=== PATIENT | male | born 1955 | race Caucasian/White ===

== ENCOUNTER 2019-10-14 00:50 | Day surgery (SDC) | payer MEDICARE, SELFPAY ==
[2019-10-10 13:55] VITALS: BMI 25.1
[2019-10-14] MEDS: LACTATED RINGERS 1,000 ML 150 ML IV CONT (08:04)
[2019-10-14 08:16] VITALS: BP 138/83; PULSE 64; RESP 18; TEMP 36.9; O2SAT 98
--- NOTE | 2019-10-14 08:54 | WPDANESEPPF ---
Anes - Initial Pre Proc Eval Procedure: Operation Date: 10/14/19 09:00 Proposed Procedures p Esophagogastroduodenoscopy - Augn Tse MD Date/Time: 10/14/19 08:54 Surgeon: Aung Tse MD Pre Op Diagnosis: Chaudhry's Esophagus Patient Data Age: 64 Gender: M Height: 6 ft 1 in Weight: 89.2 kg Last Vital Signs Temp 36.9 C 10/14/19 08:16 Pulse 64 10/14/19 08:16 Resp 18 10/14/19 08:16 BP 138/83 10/14/19 08:16 Pulse Ox 98 10/14/19 08:16 Allergies Allergy/AdvReac Type Severity Reaction Status Date / Time No Known Allergies Allergy Verified 10/10/19 13:50 Home Medications Medication Instructions Recorded Confirmed Type amlodipine-benazepril 1 cap PO DAILY 10/10/19 10/10/19 History atorvastatin 10 mg PO HS 10/10/19 10/10/19 History diazepam 5 mg PO BID PRN 10/10/19 10/10/19 History hydrocodone-acetaminophen 1 tablet PO Q6H PRN 10/10/19 10/10/19 History Patient hx anesthesia problems: none Family hx anesthesia problems: none [facility] Past Medical History Medical History (Updated 10/14/19 @ 08:54 by Syed Sanchez MD) Anxiety Barretts esophagus HTN (hypertension) Melanoma Social History Social History Gender identity (if verbalized by the patient): Male Anes - Eval Final PreProcedure Day of Procedure 10/14/19 08:54 Patient weight: overweight Heart: regular rate and rhythm Lungs: clear to auscultation Airway: Mallampati scale Neurological: alert and oriented Last oral intake: >/= 8 hours ASA classification: III Emergent: no Anesthetic plan: proceed Anesthesia type and monitoring: general GIVS and standard monitoring Informed Consent: The patient's anesthetic plan and its attendant risks and benefits were discussed with the patient/family/POA. Questions were solicited and answers provided to the satisfaction of the patient/family/POA.
--- NOTE | 2019-10-14 09:25 | P.CONGI_ITS ---
Assessment and Plan Additional Plan This is a 64-year-old white male patient seen in evaluation at the request of Dr. Attila Stauffer. Patient presents for surveillance exam. He has a known history of Chaudhry's esophagus. His current weight appetite bowel movements are normal. He denies any abdominal pain. He denies dysphagia. He denies bleeding. He has no heartburn at present. He feels much improved on starting pantoprazole 40 mg p.o. daily. Past medical history is significant for Chaudhry's esophagus. Elevated cholesterol. Current medications include amlodipine, benazepril, melatonin, atorvastatin, vitamins, melatonin, pantoprazole. No known drug allergies. Physical exam reveals patient to be alert. Oriented x3. HEENT exam unremarkable. Lungs are clear to auscultation and percussion. Heart is without murmur or extra sounds. Abdominal exam bowel sounds are present soft nontender with no hepatosplenomegaly. Impression 1. Chaudhry's esophagus. Plan is for surveillance EGD every 3 years. 2. GE reflux disease. Long-term use of anti-reflux measures and pantoprazole is advised. Plan is for surveillance EGD at this time. Long-term use of PPI advised. Anti- reflux measures and current G. GI Consult Note Consult date/time: 10/14/19 09:25 HPI: Lawrence Benoit is a 64 year old male [facility] Past Medical History Medical History (Updated 10/14/19 @ 08:54 by Syed Sanchez MD) Anxiety Barretts esophagus HTN (hypertension) Melanoma Social History Social History Gender identity (if verbalized by the patient): Male Meds Home Medications and Allergies Home Medications Medication Instructions Recorded Confirmed Type amlodipine-benazepril 1 cap PO DAILY 10/10/19 10/10/19 History atorvastatin 10 mg PO HS 10/10/19 10/10/19 History diazepam 5 mg PO BID PRN 10/10/19 10/10/19 History hydrocodone-acetaminophen 1 tablet PO Q6H PRN 10/10/19 10/10/19 History Allergies Allergy/AdvReac Type Severity Reaction Status Date / Time No Known Allergies Allergy Verified 10/10/19 13:50 Vital Signs Vital Signs - 24 hr 10/14/19 08:16 Temperature 36.9 C Pulse Rate 64 Respiratory Rate 18 Blood Pressure 138/83 Pulse Oximetry 98
[2019-10-14] MEDS: BENZOCAINE (*SP) 60 ML SPRAY CAN (HURRICAINE) 1 SPRAY MUCOUS MEM (09:38)
[2019-10-14 09:48] VITALS: BP 126/85; PULSE 69; RESP 20; O2SAT 98
[2019-10-14 09:58] VITALS: BP 128/81; PULSE 68; RESP 20; O2SAT 97
[2019-10-14 10:08] VITALS: BP 122/75; PULSE 62; RESP 20; O2SAT 99
== END 2019-10-14 10:19 | disposition home or self-care (01) ==
PROVIDERS: PCP Internal Medicine; Visit Provider Internal Medicine Gastroenterology
PROC: 0DJ08ZZ Inspection of Upper Intestinal Tract, Via Natural or Artificial Opening Endoscopic (ICD-10-PCS; CPT 43235; principal; 2019-10-14 09:00)
DX: K22.70 Barrett's esophagus without dysplasia (principal); K21.0 Gastro-esophageal reflux disease with esophagitis; E78.00 Pure hypercholesterolemia, unspecified; I10 Essential (primary) hypertension; F41.9 Anxiety disorder, unspecified; Z85.820 Personal history of malignant melanoma of skin
CPT/HCPCS: 43239; 88305; J2704; J7120

== ENCOUNTER 2022-11-21 01:40 | Day surgery (SDC) | payer MEDICARE, SELFPAY ==
[2022-11-07 15:51] VITALS: BMI 25.1
[2022-11-21 06:30] VITALS: BP 138/75; PULSE 64; RESP 18; TEMP 36.2; O2SAT 100; BMI 25.6
--- NOTE | 2022-11-21 06:38 | WPDANESEPPF ---
Anes - Initial Pre Proc Eval Procedure: Operation Date: 11/21/22 07:30 Proposed Procedures p Screening Colonoscopy - Aung Tse MD Date/Time: 11/21/22 06:38 Surgeon: Aung Tse MD Pre Op Diagnosis: neoplasm screening Patient Data Age: 67 Gender: M Height: 1.85 m Weight: 88 kg Last Vital Signs Temp 36.2 C L 11/21/22 06:30 Pulse 64 11/21/22 06:30 Resp 18 11/21/22 06:30 BP 138/75 11/21/22 06:30 Pulse Ox 100 11/21/22 06:30 O2 Del Method Room Air 11/21/22 06:30 Allergies Allergy/AdvReac Type Severity Reaction Status Date / Time citalopram [From Celexa] AdvReac Mild Nausea Verified 11/21/22 06:28 Home Medications Medication Instructions Recorded Confirmed Type diazepam 5 mg tablet (Valium) 5 mg PO QHS PRN sleep #30 tabs 08/14/22 11/21/22 Rx amlodipine 2.5 mg-benazepril 10 mg See Rx Instructions .Route 10/13/22 11/21/22 Rx capsule .COMPLEX #90 caps atorvastatin 10 mg tablet See Rx Instructions .Route 10/13/22 11/21/22 Rx .COMPLEX #90 tabs pantoprazole 40 mg tablet,delayed See Rx Instructions .Route 10/13/22 11/21/22 Rx release .COMPLEX #90 tabs hydrocodone 5 mg-acetaminophen 325 1 tablet PO Q6H PRN pain #90 tabs 10/17/22 11/21/22 Rx mg tablet aspirin 81 mg tablet 81 mg PO DAILY 11/07/22 11/21/22 History Patient hx anesthesia problems: none Family hx anesthesia problems: none Results Review: All pre-operative results and documents have been reviewed as part of the pre-operative evaluation. [facility] Past Medical History Medical History Anxiety Barretts esophagus Chronic pain Dyslipidemia HTN (hypertension) Melanoma Social History Social History (Updated 10/17/22 @ 09:38 by Randi Pascal) Smoking packs per day: 1 Smoking cigarettes per day: 20.0 Years smoked: 2 Smoking pack-years: 2.00 Smoking status: Former smoker Smokeless tobacco user: chewing tobacco Alcohol intake: current Alcohol use details: seldom Substance use: never Substance use type: does not use Lack of Transportation: No Lack of Food: Never True Current Housing: I Have Housing Concerned About Future Housing: No Difficulty Paying Gas/Electric Bills: No Difficulty Paying for Meds: No Currently Unemployed: No Education: High School Diploma/GED Difficulty w/ Childcare or Family Care: No Living arrangements: with family Occupation/Education: retired Gender identity (if verbalized by the patient): Male Sexual Orientation (if Verbalized by the Patient): Straight or Heterosexual Spiritual care concerns: No Anes - Eval Final PreProcedure Day of Procedure 11/21/22 06:38 Patient weight: normal Heart: regular rate and rhythm Lungs: decreased breath sounds Airway: Mallampati scale Neurological: alert and oriented Last oral intake: >/= 8 hours ASA classification: III Emergent: no Anesthetic plan: proceed Anesthesia type and monitoring: general GIVS and standard monitoring Results Review: All pre-operative results and documents have been reviewed as part of the pre-operative evaluation. Informed Consent: The patient's anesthetic plan and its attendant risks and benefits were discussed with the patient/family/POA. Questions were solicited and answers provided to the satisfaction of the patient/family/POA.
[2022-11-21] MEDS: LACTATED RINGERS 1,000 ML 150 ML IV CONT (06:42)
--- NOTE | 2022-11-21 07:56 | PM.HPGS ---
History of Present Illness History of Present Illness Consent: Risks, benefits, and alternatives have been discussed and questions answered. Patient agrees to proceed with procedure. Chief complaint: neoplasm screening Narrative: Lawrence Benoit is a 67 year old male Presents for screening colonoscopy. Patient's current weight appetite and bowel movements are normal. Patient denies abdominal pain. Patient has had no bleeding. Family history is noncontributory. Patient's past medical history is significant for Chaudhry's esophagus. Currently felt to be stable on pantoprazole 40mg p.o. daily. Review of Systems Review of Systems: Review of systems noncontributory. [facility] Past Medical History Medical History Anxiety Barretts esophagus Chronic pain Dyslipidemia HTN (hypertension) Melanoma Social History Social History (Updated 10/17/22 @ 09:38 by Randi Pascal) Smoking packs per day: 1 Smoking cigarettes per day: 20.0 Years smoked: 2 Smoking pack-years: 2.00 Smoking status: Former smoker Smokeless tobacco user: chewing tobacco Alcohol intake: current Alcohol use details: seldom Substance use: never Substance use type: does not use Lack of Transportation: No Lack of Food: Never True Current Housing: I Have Housing Concerned About Future Housing: No Difficulty Paying Gas/Electric Bills: No Difficulty Paying for Meds: No Currently Unemployed: No Education: High School Diploma/GED Difficulty w/ Childcare or Family Care: No Living arrangements: with family Occupation/Education: retired Gender identity (if verbalized by the patient): Male Sexual Orientation (if Verbalized by the Patient): Straight or Heterosexual Spiritual care concerns: No Meds Home Medications and Allergies Home Medications Medication Instructions Recorded Confirmed Type diazepam 5 mg tablet (Valium) 5 mg PO QHS PRN sleep #30 tabs 08/14/22 11/21/22 Rx amlodipine 2.5 mg-benazepril 10 mg See Rx Instructions .Route 10/13/22 11/21/22 Rx capsule .COMPLEX #90 caps atorvastatin 10 mg tablet See Rx Instructions .Route 10/13/22 11/21/22 Rx .COMPLEX #90 tabs pantoprazole 40 mg tablet,delayed See Rx Instructions .Route 10/13/22 11/21/22 Rx release .COMPLEX #90 tabs hydrocodone 5 mg-acetaminophen 325 1 tablet PO Q6H PRN pain #90 tabs 10/17/22 11/21/22 Rx mg tablet aspirin 81 mg tablet 81 mg PO DAILY 11/07/22 11/21/22 History Allergies Allergy/AdvReac Type Severity Reaction Status Date / Time citalopram [From Celexa] AdvReac Mild Nausea Verified 11/21/22 06:28 Vital Signs Vital Signs - 24 hr 11/21/22 06:30 Temperature 97.2 F L Pulse Rate 64 Respiratory Rate 18 Blood Pressure 138/75 Pulse Oximetry 100 Oxygen Delivery Room Air Exam Narrative: physical exam reveals patient to be alert. Vital signs stable. HEENT exam is unremarkable. Patient is anicteric. Lungs are clear to auscultation and percussion. Heart is without murmur or extra sounds. Abdomen bowel sounds present soft nontender with no organomegaly. Digital external rectal exam normal. Assessment and Plan Assessment and plan (1) Encounter for screening colonoscopy: Code(s): Z12.11 - Encounter for screening for malignant neoplasm of colon Status: Acute Assessment and Plan: S patient presents today for screening colonoscopy. Has been more than 10 years since last screening exam. follow-up to be determined after exam. (2) Barretts esophagus: Code(s): K22.70 - Chaudhry's esophagus without dysplasia Status: Acute Assessment and Plan: Patient with stable history of Chaudhry's esophagus. Last exam in 2019 was unremarkable stable with no dysplasia. Plan for surveillance EGD at 3 year intervals. Likely this should be arranged later this year.
[2022-11-21 08:00] VITALS: BP 109/72; PULSE 64; RESP 13; O2SAT 99
[2022-11-21 08:10] VITALS: BP 106/66; PULSE 57; RESP 16; O2SAT 98
[2022-11-21 08:20] VITALS: BP 107/76; PULSE 56; RESP 12; O2SAT 99
== END 2022-11-21 08:30 | disposition home or self-care (01) ==
PROVIDERS: PCP Physician Assistant Medical; Visit Provider Internal Medicine Gastroenterology
PROC: 0DJD8ZZ Inspection of Lower Intestinal Tract, Via Natural or Artificial Opening Endoscopic (ICD-10-PCS; CPT 45378; principal; 2022-11-21 07:30)
DX: Z12.11 Encounter for screening for malignant neoplasm of colon (principal); I10 Essential (primary) hypertension; E78.5 Hyperlipidemia, unspecified; K22.70 Barrett's esophagus without dysplasia; F41.9 Anxiety disorder, unspecified; G89.29 Other chronic pain; Z79.82 Long term (current) use of aspirin; Z79.891 Long term (current) use of opiate analgesic; Z87.891 Personal history of nicotine dependence
CPT/HCPCS: G0121; J2704; J7120

== ENCOUNTER 2023-10-29 07:00 | Outpatient (NON) | payer MEDICARE, OTHER, SELFPAY | END 2023-10-29 07:01 | disposition home or self-care (01) | PROVIDERS: PCP Physician Assistant Medical; Visit Provider Internal Medicine Gastroenterology | DX: K22.70 Barrett's esophagus without dysplasia (principal) | CPT/HCPCS: 88305 ==

== ENCOUNTER 2023-10-29 07:53 | Day surgery (SDC) | payer MEDICARE, OTHER, SELFPAY ==
[2023-10-27 10:54] VITALS: BMI 25.9
[2023-10-27 12:18] VITALS: BMI 25.2
[2023-10-29 09:07] VITALS: BP 129/87; PULSE 66; RESP 18; TEMP 36.8; O2SAT 100; BMI 25.9
[2023-10-29] MEDS: LACTATED RINGERS 1,000 ML 150 ML IV CONT (09:28)
--- NOTE | 2023-10-29 09:36 | WPDANESEPPF ---
Anes - Initial Pre Proc Eval Procedure: Operation Date: 10/29/23 10:30 Proposed Procedures p Esophagogastroduodenoscopy - Aung Tse MD Date/Time: 10/29/23 09:36 Surgeon: Aung Tse MD Pre Op Diagnosis: Barretts Esophagus without Dysplasia Patient Data Age: 68 Gender: M Height: 1.85 m Weight: 89 kg Last Vital Signs Temp 36.8 C 10/29/23 09:07 Pulse 66 10/29/23 09:07 Resp 18 10/29/23 09:07 BP 129/87 10/29/23 09:07 Pulse Ox 100 10/29/23 09:07 O2 Del Method Room Air 10/29/23 09:07 Allergies Allergy/AdvReac Type Severity Reaction Status Date / Time No Known Allergies Allergy Verified 10/29/23 09:00 Home Medications Medication Instructions Recorded Confirmed Type aspirin 81 mg tablet 81 mg PO DAILY 11/07/22 10/29/23 History diazepam 5 mg tablet (Valium) 5 mg PO QHS PRN sleep #30 tabs 04/28/23 10/29/23 Rx finasteride 5 mg tablet 5 mg PO DAILY 06/29/23 10/29/23 History tamsulosin 0.4 mg capsule 0.4 mg PO DAILY 06/29/23 09/16/23 History amlodipine 5 mg-benazepril 10 mg 1 cap PO DAILY #90 caps 08/19/23 10/29/23 Rx capsule celecoxib 200 mg capsule (Celebrex) 200 mg PO DAILY #90 caps 08/19/23 10/29/23 Rx atorvastatin 10 mg tablet See Rx Instructions .Route 10/08/23 10/29/23 Rx .COMPLEX #90 tabs pantoprazole 40 mg tablet,delayed See Rx Instructions .Route 10/08/23 10/29/23 Rx release .COMPLEX #90 tabs hydrocodone 5 mg-acetaminophen 325 1 tablet PO Q8H PRN pain #70 tabs 10/09/23 10/29/23 Rx mg tablet Patient hx anesthesia problems: none Family hx anesthesia problems: none Results Review: All pre-operative results and documents have been reviewed as part of the pre-operative evaluation. [facility] Past Medical History Medical History Anxiety Barretts esophagus Chronic low back pain Chronic pain Degenerative disc disease, lumbar Dyslipidemia Enlarged prostate cystoscopy negative around May 2023, Dr. 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 Surgical History Surgical History H/O vasectomy History of back surgery History of tonsillectomy Family History Family History Mother Advanced dementia Father Heart disease Social History Social History Smoking packs per day: 1 Smoking cigarettes per day: 20.0 Years smoked: 2 Smoking pack-years: 2.00 Smoking status: Never smoker Smokeless tobacco user: chewing tobacco Alcohol intake: current Alcohol use details: seldom Substance use: never Substance use type: does not use Do You Feel Safe in your Home?: Yes Lack of Transportation: No Lack of Food: Never True Current Housing: I Have Housing Concerned About Future Housing: No Difficulty Paying Gas/Electric Bills: No Difficulty Paying for Meds: No Currently Unemployed: No Education: Associate Degree Difficulty w/ Childcare or Family Care: No Living arrangements: with family Occupation/Education: retired Gender identity (if verbalized by the patient): Male Sexual Orientation (if Verbalized by the Patient): Straight or Heterosexual Spiritual care concerns: No Anes - Eval Final PreProcedure Day of Procedure 10/29/23 09:36 Patient weight: overweight Heart: regular rate and rhythm Lungs: clear to auscultation Airway: Mallampati scale class II Neurological: alert and oriented Last oral intake: >/= 8 hours ASA classification: III Emergent: no Anesthetic plan: proceed Anesthesia type and monitoring: general GIVS and standard monitoring Results Review: All pre-operative results and documents have been reviewed as part of the pre-operative evaluation. Informed Consent:
--- NOTE | 2023-10-29 09:37 | PM.HPGS ---
History of Present Illness History of Present Illness Consent: Risks, benefits, and alternatives have been discussed and questions answered. Patient agrees to proceed with procedure. Chief complaint: Barretts Esophagus without Dysplasia Narrative: Lawrence Benoit is a 68 year old male presents for surveillance EGD. Patient known to have Chaudhry's esophagus. He has an underlying history of acid reflux. States previous regurgitation and acid reflux has improved dramatically on taking pantoprazole 40mg p.o. daily. Occasionally he will have mid epigastric pain that response to supplemental antacids. Patient denies any dysphagia. He has had no bleeding. He has had no weight loss. Patient presents today for surveillance EGD and biopsies of Chaudhry's esophagus. Family history is noncontributory. Review of Systems Review of Systems: Review of systems noncontributory. [facility] Past Medical History Medical History Anxiety Barretts esophagus Chronic low back pain Chronic pain Degenerative disc disease, lumbar Dyslipidemia Enlarged prostate cystoscopy negative around Apr/May 2023, Dr. 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 Surgical History Surgical History H/O vasectomy History of back surgery History of tonsillectomy Family History Family History Mother Advanced dementia Father Heart disease Social History Social History Smoking packs per day: 1 Smoking cigarettes per day: 20.0 Years smoked: 2 Smoking pack-years: 2.00 Smoking status: Never smoker Smokeless tobacco user: chewing tobacco Alcohol intake: current Alcohol use details: seldom Substance use: never Substance use type: does not use Do You Feel Safe in your Home?: Yes Lack of Transportation: No Lack of Food: Never True Current Housing: I Have Housing Concerned About Future Housing: No Difficulty Paying Gas/Electric Bills: No Difficulty Paying for Meds: No Currently Unemployed: No Education: Associate Degree Difficulty w/ Childcare or Family Care: No Living arrangements: with family Occupation/Education: retired Gender identity (if verbalized by the patient): Male Sexual Orientation (if Verbalized by the Patient): Straight or Heterosexual Spiritual care concerns: No Meds Home Medications and Allergies Home Medications Medication Instructions Recorded Confirmed Type aspirin 81 mg tablet 81 mg PO DAILY 11/07/22 10/29/23 History diazepam 5 mg tablet (Valium) 5 mg PO QHS PRN sleep #30 tabs 04/28/23 10/29/23 Rx finasteride 5 mg tablet 5 mg PO DAILY 06/29/23 10/29/23 History tamsulosin 0.4 mg capsule 0.4 mg PO DAILY 06/29/23 09/16/23 History amlodipine 5 mg-benazepril 10 mg 1 cap PO DAILY #90 caps 08/19/23 10/29/23 Rx capsule celecoxib 200 mg capsule (Celebrex) 200 mg PO DAILY #90 caps 08/19/23 10/29/23 Rx atorvastatin 10 mg tablet See Rx Instructions .Route 10/08/23 10/29/23 Rx .COMPLEX #90 tabs pantoprazole 40 mg tablet,delayed See Rx Instructions .Route 10/08/23 10/29/23 Rx release .COMPLEX #90 tabs hydrocodone 5 mg-acetaminophen 325 1 tablet PO Q8H PRN pain #70 tabs 10/09/23 10/29/23 Rx mg tablet Allergies Allergy/AdvReac Type Severity Reaction Status Date / Time No Known Allergies Allergy Verified 10/29/23 09:00 Vital Signs Vital Signs - 24 hr 10/29/23 09:07 Temperature 98.3 F Pulse Rate 66 Respiratory Rate 18 Blood Pressure 129/87 Pulse Oximetry 100 Oxygen Delivery Room Air Exam Narrative: Physical exam reveals patient signs stable. HEENT exam is unremarkable. Patient is anicteric. Lungs are clear to auscultation
[2023-10-29 10:30] VITALS: BP 106/74; PULSE 63; RESP 16; O2SAT 97
[2023-10-29 10:40] VITALS: BP 106/75; PULSE 59; RESP 16; O2SAT 98
[2023-10-29 10:50] VITALS: BP 111/78; PULSE 56; RESP 16; O2SAT 99
--- NOTE | 2023-10-29 10:58 | WPDANESPN ---
Anes - Prog Note Post-Op Date/Time: 10/29/23 10:58 Cardiovascular status: normal Respiratory status: normal Airway patency: baseline Mental status: baseline Post-Op hydration status: normal Vital Signs: Last Vital Signs Temp 36.8 C 10/29/23 09:07 Pulse 56 L 10/29/23 10:50 Resp 16 10/29/23 10:50 BP 111/78 10/29/23 10:50 Pulse Ox 99 10/29/23 10:50 O2 Del Method Room Air 10/29/23 10:50 Pain Score (VAS): 0/10 I/O: Intake & Output 10/28/23 10/29/23 10/29/23 23:59 07:59 15:59 Intake Total 200 Balance 200 Patient Feedback: Patient satisfied with anesthetic care.
== END 2023-10-29 11:08 | disposition home or self-care (01) ==
PROVIDERS: PCP Physician Assistant Medical; Visit Provider Internal Medicine Gastroenterology
PROC: 0DJ08ZZ Inspection of Upper Intestinal Tract, Via Natural or Artificial Opening Endoscopic (ICD-10-PCS; CPT 43235; principal; 2023-10-29 10:30)
DX: K22.70 Barrett's esophagus without dysplasia (principal)
CPT/HCPCS: 43239